=== PATIENT | female | born 1990 | race Caucasian/White ===

== ENCOUNTER 2019-03-01 03:15 | Emergency (ER) | payer BC, OTHER ==
[2019-03-01] MEDS ORDERED: predniSONE 20 MG Tab PO ONE (03:16)
[2019-03-01 03:27] VITALS: BP 138/94
--- NOTE | 2019-03-01 03:36 | EDM.PDOC ---
ED HPI GENERAL MEDICAL PROBLEM - General Chief Complaint: Respiratory Problem Stated Complaint: ASTMA Time Seen by Provider: 03/01/19 03:34 Source of Information: Reports: Patient History Limitations: Reports: No Limitations - History of Present Illness INITIAL COMMENTS - FREE TEXT/NARRATIVE: Cough,coryza and PND for 2 weeks.getting worse.Has taken Albuterol with some releief. No fever.Finished a course of Bactrim while in [place] last week.Ainsley has a h/o allergic asthma - Related Data Allergies Allergy/AdvReac Type Severity Reaction Status Date / Time alcohol Allergy Rash Verified 01/18/15 22:03 Home Meds: Home Meds Desogestrel/Ethinyl Estradiol [Apri] 01/18/15 [History] Past Medical History - Past Health History Medical/Surgical History: Denies Medical/Surgical History Other Cardiovascular History: TIA in December 2018 Respiratory History: Reports: Asthma Social & Family History - Tobacco Use Smoking Status *Q: Never Smoker ED ROS GENERAL - Review of Systems Review Of Systems: ROS reveals no pertinent complaints other than HPI. ED EXAM, GENERAL - Physical Exam Exam: See Below Exam Limited By: No Limitations General Appearance: Alert, WD/WN, No Apparent Distress Ears: Normal External Exam, Normal Canal, Hearing Grossly Normal, Normal TMs Ear Exam: Bilateral Ear: Auricle Normal, Canal Normal, TM normal Nose: Normal Inspection, Normal Mucosa, No Blood Throat/Mouth: Normal Inspection, Normal Lips, Normal Teeth, Normal Gums, Normal Oropharynx, Normal Voice, No Airway Compromise Head: Atraumatic, Normocephalic Neck: Normal Inspection, Supple, Non-Tender, Full Range of Motion Respiratory/Chest: No Respiratory Distress, Lungs Clear, Normal Breath Sounds, No Accessory Muscle Use, Chest Non-Tender Cardiovascular: Normal Peripheral Pulses, Regular Rate, Rhythm, No Edema, No Gallop, No JVD, No Murmur, No Rub GI/Abdominal: Normal Bowel Sounds, Soft, Non-Tender, No Organomegaly, No Distention, No Abnormal Bruit, No Mass (Female) Exam: Normal External Exam, Normal Speculum Exam, Normal Bimanual Exam Rectal (Female) Exam: Normal Exam, Normal Rectal Tone Back Exam: Normal Inspection, Full Range of Motion, NT Extremities: Normal Inspection, Normal Range of Motion, Non-Tender, Normal Capillary Refill, No Pedal Edema Neurological: Alert, Oriented, CN II-XII Intact, Normal Cognition, Normal Gait, Normal Reflexes, No Motor/Sensory Deficits Psychiatric: Normal Affect, Normal Mood Skin Exam: Warm, Dry, Intact, Normal Color, No Rash Lymphatic: No Adenopathy Course - Vital Signs Last Recorded V/S: Last Vital Signs Temp 98.8 F 03/01/19 03:15 Pulse 108 H 03/01/19 03:15 Resp 18 03/01/19 03:15 BP 138/94 H 03/01/19 03:15 Pulse Ox 100 03/01/19 03:15 Departure - Departure Time of Disposition: 03:35 Disposition: Home, Self-Care 01 Condition: Good Clinical Impression: Acute asthma - Discharge Information - Problem List & Annotations (1) PND (post-nasal drip) SNOMED Code(s): 22513924 Code(s): R09.82 - POSTNASAL DRIP Status: Acute - Problem List Review Problem List Initiated/Reviewed/Updated: Yes - Assessment/Plan Plan: Prednisone 20 mg po bid
== END 2019-03-01 03:40 | disposition home or self-care (01) ==
LOC: FB.ED 03:15
DX: J45.901 Unspecified asthma with (acute) exacerbation (principal); Z91.048 Other nonmedicinal substance allergy status; Z79.899 Other long term (current) drug therapy
CPT/HCPCS: 99282; A9270-GY

== ENCOUNTER 2022-03-03 20:10 | Emergency (ER) | payer OTHER ==
[2022-03-03] MEDS ORDERED: Amoxicillin 500 MG Cap PO ONE (20:11)
[2022-03-03] MEDS ORDERED: Amoxicillin 500 MG Cap PO STA (21:01)
[2022-03-04 05:30] VITALS: BP 134/78; PULSE 83
== END 2022-03-03 21:10 | disposition home or self-care (01) ==
LOC: FB.ED 20:10
DX: J02.9 Acute pharyngitis, unspecified (principal); J45.909 Unspecified asthma, uncomplicated; Z91.048 Other nonmedicinal substance allergy status; Z88.1 Allergy status to other antibiotic agents; Z79.899 Other long term (current) drug therapy
CPT/HCPCS: 87651; 99283; A9270